=== PATIENT | male | born 1970 | race Two or more races ===

== ENCOUNTER 2024-10-21 10:56 | Emergency (ER) | payer BC, SELFPAY ==
[2024-10-21 10:57] VITALS: BMI 22.8
[2024-10-21 11:10] VITALS: BP 156/89; PULSE 92; RESP 18; TEMP 36.8; O2SAT 97
--- NOTE | 2024-10-21 11:17 | XR_ITS ---
Examination: Knee, left , 3 views Technique: Knee AP, lateral, oblique 3 views Date and time of exam: October 21, 2024 1135 hours INDICATIONS: Twisting injury to the knee this morning with knee pain. 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
--- NOTE | 2024-10-21 11:55 | EDNOTE_ITS ---
<Statement entered by Hayley Howard MD - 10/28/24 06:25> As co-signing physician, I was present and available for consult prn. I concur with the plan and care as documented by the midlevel provider. ED Extremity Problem RME/HPI General Chief complaint: Extremity Problem,Nontraumatic Stated complaint: LEFT KNEE PAIN, FEELS DISLOCATED TODAY Time Seen by Provider: 10/21/24 11:17 Arrival date/time: 10/21/24 10:56 54-year-old male presents emergency department getting ready for work today and he felt pain in his left knee Limitations: no limitations Related Data Allergies Allergy/AdvReac Type Severity Reaction Status Date / Time NKA* Allergy Uncoded 10/21/24 10:59 Review of Systems Review of Systems Systems Reviewed: All systems reviewed, normal except as documented Constitutional Constitutional: Reports system reviewed and no additional complaints, except as documented, Denies fever(s) and Denies headache(s) Eyes Eyes: Reports system reviewed and no additional complaints, except as documented and Denies blurry vision ENT Ears, Nose, Mouth, and Throat: Reports system reviewed and no additional complaints, except as documented, Denies headache(s), Denies nasal congestion and Denies nasal discharge Cardiovascular Cardiovascular: Reports system reviewed and no additional complaints, except as documented, Denies chest pain and Denies dyspnea Respiratory Respiratory: Reports system reviewed and no additional complaints, except as documented, Denies chest congestion, Denies cough and Denies dyspnea Gastrointestinal Gastrointestinal: Reports system reviewed and no additional complaints, except as documented and Denies abdominal pain Musculoskeletal Musculoskeletal: Reports system reviewed and no additional complaints, except as documented, Denies abnormal gait, Reports arthralgias, Denies deformity, Denies numbness, Reports stiffness and Denies tingling Integumentary/Breasts Skin/Breast: Reports system reviewed and no additional complaints, except as documented and Denies rash Neurologic Neurologic: Reports system reviewed and no additional complaints, except as documented, Reports as per HPI, Denies abnormal gait, Denies headache(s), Denies numbness and Denies tingling Past Medical History Social History SMOKING STATUS: Never smoker ED Exam General Limitations: Present no limitations General appearance: Present alert and in no apparent distress Head Head exam: Present atraumatic Eye Eye exam: Present normal appearance, PERRL and EOMI ENT ENT exam: Present normal exam, normal oropharynx and mucous membranes moist Neck Neck exam: Present normal inspection, full ROM and trachea midline Chest Chest inspection: Present normal inspection and symmetric chest wall rise Respiratory Respiratory exam: Present normal lung sounds bilaterally Cardiovascular Cardiovascular exam: Present regular rate, normal rhythm and normal heart sounds Abdominal Exam Abdominal exam: Present soft and normal bowel sounds Extremities Exam Extremities exam: Present normal inspection and full ROM Back Exam Back exam: Present normal inspection and full ROM Neurological Exam Neurological exam: Present alert, oriented X3 and CN II-XII intact Psychiatric Psychiatric exam: Present normal affect and normal mood Skin Skin exam: Present warm, dry, intact and normal color Course Quality Measures none Orders Category Date Time Status XR knee LT 3V Stat Exams 10/21/24 11:17 Completed Vital Signs Vital signs: Vital Signs Temperature 98.2 F 10/21/24 11:10 Pulse Rate 92 10/21/24 11:10 Respiratory Rate 18 10/21/24 11:10 Blood Pressure 156/89 H 10/21/24 11:10 Pulse Oximetry (%) 97 10/21/24 11:10 Oxygen Delivery Method Room Air 10/21/24 11:10 O2 saturation 97% room air within normal limits Extremity Problem MDM Narrative MDM Narrative:: 54-year-old male presents emergency department getting ready for work today and he felt pain in his left knee On exam patient well-appearing patient is not appear ill or toxic patient does n ot appear to be in acute distress Imaging of the left knee obtained no acute fracture dislocation noted explained to the patient if symptoms persist or worsen he may need an MRI and outpatient basis Patient discharged home in no distress to follow-up with primary care doctor in the next 24 to 48 hours and for any worsening symptoms to return to the ER immediately Patient data External records reviewed:: [facility] previous records Clinical information provided by:: patient Social determinants that could affect healthcare access:: none Patient has the following chronic illnesses:: None How is presenting disease/condition affected by chronic disease/condition?: no chronic disease Evaluation data The following diagnostics were reviewed and interpreted by me:: radiology exam(s) Lab and/or radiology exams considered but not ordered:: Radiology obtain Interpretation Summary: Reviewed by me Medications / Prescriptions Medications or Prescriptions considered but not ordered:: Given no meds Medication administrations:: Given no meds Consultations Consultation(s) initiated? (list below): No Diagnosis Extremity Problem Differential Diagnosis: other Most likely diagnosis given after review of the tests above:: Knee pain Admission Indicated Admission indicated?: not indicated Admission Request Was there a request for admission?: No Disposition Plan Disposition Plan: Discharge Discharge Attestation Discharge Attestation: The patient and all family members were given an opportunity to ask questions and understood the discharge instructions. Discharge instructions specifically effects, indications for sooner follow up or return to the emergency department, and the expected course of current diagnosis. Patient condition: Stable Discharge Plan Plan Patient Disposition: HOME (Self Care) Disposition Comment: Stable Problem List Clinical Impression: Knee pain, left Patient/Caregiver Discharge Instructions Education Materials: ED Arthralgia Additional Instructions: Please follow up with your primary care doctor in the next 24-48hrs for any worsening symptoms return here immediately If symptoms persist or worsen you may need an MRI for further evaluation Print Language: Romansh Stand Alone Forms: Rosa Award Info., Work/School Release, Patient Portal Info Letter PA/ANDER Supervising Physician NAREN/ANDER Supervising Physician: Dr. Howard
== END 2024-10-21 12:10 | disposition home or self-care (01) ==
LOC: SERX 12:01
PROVIDERS: Emergency Provider Emergency Medicine
DX: M25.562 Pain in left knee (principal)
CPT/HCPCS: 73562; 99283